=== PATIENT | female | born 1930 | race Caucasian/White ===

== ENCOUNTER 2018-10-23 15:07 | Emergency (ER) | payer MEDICARE, OTHER ==
[2018-10-23] MEDS: DIPHTH/TET/ACEL PERTUSS (ADULT) 0.5 ML VIAL IM* (16:17)
== END 2018-10-23 17:26 | disposition home or self-care (01) ==
LOC: E/R 15:07
DX: S01.21XA Laceration without foreign body of nose, initial encounter (principal); E11.9 Type 2 diabetes mellitus without complications; I25.10 Atherosclerotic heart disease of native coronary artery without angina pectoris; S02.2XXA Fracture of nasal bones, initial encounter for closed fracture; W01.0XXA Fall on same level from slipping, tripping and stumbling without subsequent striking against object, initial encounter; Y92.9 Unspecified place or not applicable; Z86.73 Personal history of transient ischemic attack (TIA), and cerebral infarction without residual deficits; Z79.82 Long term (current) use of aspirin; Z23 Encounter for immunization; Z79.84 Long term (current) use of oral hypoglycemic drugs
CPT/HCPCS: 12011; 70450; 70486; 72125; 73130-LT; 90471; 90715; 99284-25